=== PATIENT | female | born 1990 | race African-American/Black ===

== ENCOUNTER 2017-07-16 16:44 | Emergency (ER) | payer MEDICAID ==
[2017-07-16 17:02] VITALS: BP 129/67
--- NOTE | 2017-07-16 17:40 | ER Document Report ---
ED Medical Screen (RME) - General Chief Complaint: Psych Problem Stated Complaint: PSYCH EVAL Time Seen by Provider: 07/16/17 17:13 Mode of Arrival: Ambulatory Information source: Patient Notes: 27-year-old female presents with concerns for stress anxiety. Patient notes she gets an argument with her baby daddy she is with who lives 6 hours away, she notes that she has been driving back and forth for 12 hours straight, she initially presented to the emergency department where she gave up her 14 month old. pt then presented back wanting her child, then checked herself and another child in to be seen I have greeted and performed a rapid initial assessment of this patient. A comprehensive ED assessment and evaluation of the patient, analysis of test results and completion of the medical decision making process will be conducted by additional ED providers. PHYSICAL EXAMINATION: GENERAL: Well-appearing, well-nourished and in no acute distress. HEAD: Atraumatic, normocephalic. EYES: Pupils equal round extraocular movements intact, conjunctiva are normal. ENT: Nares patent NECK: Normal range of motion LUNGS: No respiratory distress Abdomen: gravid Musculoskeletal: Normal range of motion NEUROLOGICAL: Normal speech, normal gait. PSYCH: Patient appears anxious poor eye contact SKIN: Warm, Dry, normal turgor, no rashes or lesions noted. TRAVEL OUTSIDE OF THE [place] IN LAST 30 DAYS: No - Related Data Allergies/Adverse Reactions: No Known Allergies Allergy (Unverified 07/16/17 16:49) Past Medical History - Social History Chew tobacco use (# tins/day): No Frequency of alcohol use: None Drug Abuse: None - Past Medical History Cardiac Medical History: Reports: Hx Hypertension Renal/ Medical History: Denies: Hx Peritoneal Dialysis Past Surgical History: Reports: Hx Section Physical Exam - Vital signs Vitals: Temp Pulse Resp BP Pulse Ox 97.8 F 82 20 129/67 H 100 07/16/17 17:01 07/16/17 17:01 07/16/17 17:01 07/16/17 17:01 07/16/17 17:01 Course - Vital Signs Vital signs: Temp Pulse Resp BP Pulse Ox 97.8 F 82 20 129/67 H 100 07/16/17 17:01 07/16/17 17:01 07/16/17 17:01 07/16/17 17:01 07/16/17 17:01
--- NOTE | 2017-07-16 18:03 | ER Document Report ---
ED Psych Disorder / Suicide - General Chief Complaint: Psych Problem Stated Complaint: PSYCH EVAL Time Seen by Provider: 07/16/17 17:13 Mode of Arrival: Ambulatory TRAVEL OUTSIDE OF THE [place] IN LAST 30 DAYS: No - HPI Patient complains to provider of: Other - DEPRESSION Onset: This afternoon Onset was: Sudden Quality of pain: No pain Suicide Risk Factors: Lack of social support Situational problems related to: Spouse, Other - Normal mood: No - TEARFUL, DEPRESSED Associated symptoms: Depressed, Tearful Similar symptoms previously: Yes Recently seen / treated by doctor: Yes - ROUTINE CARE Notes: This patient apparently was at this emergency department earlier today and dropped off her [id number] child unattended and then left. Subsequently she returned and requested mental health assistance. - Related Data Allergies/Adverse Reactions: No Known Allergies Allergy (Unverified 07/16/17 16:49) Past Medical History - General Information source: Patient - Social History Smoking Status: Never Smoker Chew tobacco use (# tins/day): No Frequency of alcohol use: None Drug Abuse: None Lives with: Parents Family History: None Patient has suicidal ideation: No Patient has homicidal ideation: No - Past Medical History Cardiac Medical History: Reports: Hx Hypertension Pulmonary Medical History: Reports: None EENT Medical History: Reports: None Neurological Medical History: Reports: None Endocrine Medical History: Reports: None Renal/ Medical History: Reports: None. Denies: Hx Peritoneal Dialysis Malignancy Medical History: Reports: None GI Medical History: Reports: None Musculoskeltal Medical History: Reports None Psychiatric Medical History: Reports: Hx Depression Past Surgical History: Reports: Hx Section Review of Systems - Review of Systems Constitutional: No symptoms reported EENT: No symptoms reported Cardiovascular: No symptoms reported Respiratory: No symptoms reported Gastrointestinal: No symptoms reported Genitourinary: No symptoms reported Female Genitourinary: See HPI. denies: Vaginal bleeding Musculoskeletal: No symptoms reported Skin: No symptoms reported Neurological/Psychological: No symptoms reported Physical Exam - Vital signs Vitals: Temp Pulse Resp BP Pulse Ox 97.8 F 82 20 129/67 H 100 07/16/17 17:01 07/16/17 17:01 07/16/17 17:01 07/16/17 17:01 07/16/17 17:01 Interpretation: Normal - General General appearance: Appears well, Alert In distress: None - HEENT Head: Normocephalic Eyes: Normal Conjunctiva: Normal Ears: Normal Nasal: Normal Mouth/Lips: Normal Mucous membranes: Normal Pharynx: Normal - Respiratory Respiratory status: No respiratory distress Breath sounds: Normal - Cardiovascular Rhythm: Regular Heart sounds: Normal auscultation Murmur: No - Abdominal Inspection: Gravid female - Back Back: Normal - Extremities General upper extremity: Normal inspection General lower extremity: Normal inspection - Neurological Neuro grossly intact: Yes Cognition: Normal Orientation: AAOx4 - Psychological Associated symptoms: Depressed, Tearful - Skin Skin Temperature: Warm Skin Moisture: Dry Skin Color: Normal Skin Turgor: Elastic Course - Vital Signs Vital signs: Temp Pulse Resp BP Pulse Ox 97.8 F 82 20 129/67 H 100 07/16/17 17:01 07/16/17 17:01 07/16/17 17:01 07/16/17 17:01 07/16/17 17:01 - Laboratory Result Diagrams: 07/16/17 17:50 07/16/17 17:50 Laboratory results interpreted by me: 07/16/17 07/16/17 17:50 17:50 MCH 26.6 L RDW 15.7 H Sodium 136.5 L Carbon Dioxide 21 L Alkaline Phosphatase 149 H Salicylates < 1.0 L Acetaminophen < 10 L Discharge - Discharge Clinical Impression: Third trimester Depression Qualifiers: Depression Type: unspecified Qualified Code(s): F32.9 - Major depressive disorder, single episode, unspecified Condition: Stable Disposition: LABOR CHECK
[2017-07-16 18:07] LABS: ABSOLUTE EOSINOPHILS # (AUTO) 0.1 10^3/uL (0.0-0.6); ABSOLUTE LYMPHOCYTES (AUTO) 2.5 10^3/uL (0.5-4.7); ABSOLUTE MONOCYTES (AUTO) 0.5 10^3/uL (0.1-1.4); BASOPHILS % (AUTO) 0.2 % (0-2); EOSINOPHILS % (AUTO) 0.6 % (0-6); HEMOGLOBIN 12.1 g/dL (12.0-15.5); MEAN CORPUSCULAR HEMOGLOBIN 26.6 pg (27.0-33.4); TOTAL CELLS COUNTED % (AUTO) 100 %
[2017-07-16 18:14] LABS: ABSOLUTE NEUT (AUTO) 6.2 10^3/uL (1.7-8.2); HEMATOCRIT 36.9 % (36.0-47.0); LYMPHOCYTES % (AUTO) 26.5 % (13-45); MEAN CORPUSCULAR HGB CONC 32.8 g/dL (32.0-36.0); MEAN CORPUSCULAR VOLUME 81 fl (80-97); MONOCYTES % (AUTO) 5.5 % (3-13); PLATELET COUNT 221 10^3/uL (150-450); RED BLOOD COUNT 4.55 10^6/uL (3.72-5.28); RED CELL DISTRIBUTION WIDTH 15.7 % (11.5-14.0); SEGMENTED NEUTROPHILS % (AUTO) 67.2 % (42-78); WHITE BLOOD COUNT 9.3 10^3/uL (4.0-10.5)
[2017-07-16 18:25] LABS: ALANINE AMINOTRANSFERASE 23 U/L (9-52); ALBUMIN 3.9 g/dL (3.5-5.0); ALKALINE PHOSPHATASE 149 U/L (38-126); ANION GAP 11 (5-19); ASPARTATE AMINO TRANSFERASE 17 U/L (14-36); BILIRUBIN,DIRECT 0.3 mg/dL (0.0-0.4); BILIRUBIN,TOTAL 0.3 mg/dL (0.2-1.3); BLOOD UREA NITROGEN 7 mg/dL (7-20); CALCIUM 9.8 mg/dL (8.4-10.2); CARBON DIOXIDE 21 mmol/L (22-30); CHLORIDE 105 mmol/L (98-107); GLUCOSE 89 mg/dL (75-110); POTASSIUM 3.9 mmol/L (3.6-5.0); SODIUM 136.5 mmol/L (137-145)
[2017-07-16 18:30] LABS: ACETAMINOPHEN < 10 ug/mL (10-30); ALCOHOL < 10 mg/dL (NONE DETECTED); SALICYLATE < 1.0 mg/dL (2.0-20.0)
--- NOTE | 2017-07-16 18:35 | EKG REPORT ---
SEVERITY:- NORMAL ECG - SINUS RHYTHM : Confirmed by: Jose Juan Stewart 16-Jul-2017 18:34:59
[2017-07-16 19:32] LABS: BILIRUBIN,URINE NEGATIVE (NEGATIVE); COLOR,URINE YELLOW; GLUCOSE, URINE NEGATIVE (NEGATIVE); KETONES,URINE 20 mg/dL (NEGATIVE); LEUKOCYTE ESTERASE,URINE NEGATIVE (NEGATIVE); NITRITE,URINE NEGATIVE (NEGATIVE); PROTEIN,URINE 30 mg/dL (NEGATIVE); URINE SPECIFIC GRAVITY 1.028; UROBILINOGEN,URINE NEGATIVE mg/dL (<2.0)
[2017-07-16 19:33] LABS: APPEARANCE,URINE CLEAR
[2017-07-16 19:51] LABS: URINE AMPHETAMINES SCREEN NEGATIVE; URINE BARBITURATES SCREEN NEGATIVE; URINE BENZODIAZEPINES SCREEN NEGATIVE; URINE COCAINE SCREEN NEGATIVE; URINE MARIJUANA (THC) SCREEN NEGATIVE; URINE METHADONE SCREEN NEGATIVE; URINE PHENCYCLIDINE SCREEN NEGATIVE
== END 2017-07-16 19:01 | disposition admitted as inpatient to this hospital (09) ==
LOC: ER 16:44
DX: O99.343 Other mental disorders complicating pregnancy, third trimester (principal); F32.9 Major depressive disorder, single episode, unspecified; O16.3 Unspecified maternal hypertension, third trimester; Z3A.00 Weeks of gestation of pregnancy not specified
CPT/HCPCS: 36415; 80053; 80307; 81001; 85025; 93005; 93010; 99284

== ENCOUNTER 2017-07-16 18:41 | Inpatient (IN) | payer MEDICAID ==
[2017-07-16 19:47] LABS: AMNISURE (ROM) POSITIVE (NEGATIVE)
[2017-07-16 19:53] LABS: APPEARANCE,URINE SLIGHTLY-CLOUDY; BILIRUBIN,URINE NEGATIVE (NEGATIVE); COLOR,URINE YELLOW; GLUCOSE, URINE NEGATIVE (NEGATIVE); KETONES,URINE TRACE mg/dL (NEGATIVE); LEUKOCYTE ESTERASE,URINE NEGATIVE (NEGATIVE); NITRITE,URINE NEGATIVE (NEGATIVE); PROTEIN,URINE 30 mg/dL (NEGATIVE); URINE SPECIFIC GRAVITY 1.034; UROBILINOGEN,URINE NEGATIVE mg/dL (<2.0)
[2017-07-16 20:15] LABS: URINE AMPHETAMINES SCREEN NEGATIVE; URINE BARBITURATES SCREEN NEGATIVE; URINE BENZODIAZEPINES SCREEN NEGATIVE; URINE COCAINE SCREEN NEGATIVE; URINE MARIJUANA (THC) SCREEN NEGATIVE; URINE METHADONE SCREEN NEGATIVE; URINE PHENCYCLIDINE SCREEN NEGATIVE
[2017-07-16] MEDS ORDERED: DEXTROSE 40% GEL 15 GM TUBE PO PRN ×2 (20:18)
[2017-07-16] MEDS ORDERED: GLUCAGON,HUMAN RECOMB 1 MG INJ SUBCUT PRN (20:18)
[2017-07-16] MEDS ORDERED: DEXTROSE 50%-WATER 25 GM/50 ML DISP.SYRIN IV PRN ×2 (20:18)
[2017-07-16] MEDS ORDERED: PENICILLIN G-K 5 MILLION UNIT VIAL ONE ×2 (20:53→21:08)
[2017-07-16] MEDS ORDERED: CEFAZOLIN 2 GM/D5W RTU 0 GM/0 ML RTUPB IV ONE (21:02)
[2017-07-16] MEDS ORDERED: CITRIC ACID/SODIUM CITRATE ORAL SOLN 15 ML UDCUP ONE (21:02)
[2017-07-16] MEDS ORDERED: CEFAZOLIN INJ 1 GM VIAL ONE (21:08)
[2017-07-16] MEDS ORDERED: CEFAZOLIN 2 GM/D5W RTU 2 GM/50 ML RTUPB IV SCH (21:15)
[2017-07-16] MEDS ORDERED: CEFAZOLIN 1 GM/D5W RTU 1 GM/50 ML RTUPB IV SCH (21:15)
[2017-07-16] MEDS ORDERED: PENICILLIN G POTASSIUM 5,000,000 UNIT in DEXTROSE 5%-WATER 100 ML IV ONE (21:30)
[2017-07-16] MEDS ORDERED: CEFAZOLIN SODIUM 3 GM in DEXTROSE 5%-WATER 100 ML IV SCH ×4 (21:30)
[2017-07-16] MEDS ORDERED: OXYTOCIN 10 UNIT/ML VIAL ONE (21:39)
[2017-07-16] MEDS ORDERED: OXYTOCIN/NORMAL SALINE 20 UNIT/1,000 ML RTUINJ ONE (21:39)
[2017-07-16] MEDS ORDERED: MORPHINE SULFATE 10 MG/ML INJ ONE (21:40)
[2017-07-16] MEDS ORDERED: FENTANYL CITRATE INJ/PF 100 MCG/2 ML AMPUL ONE ×2 (21:40→23:30)
[2017-07-16] MEDS ORDERED: MIDAZOLAM 2 MG/2 ML INJ ONE (21:40)
[2017-07-16 22:11] LABS: LDH 401 U/L (313-618); URIC ACID 4.2 mg/dL (2.5-6.2)
--- NOTE | 2017-07-16 22:32 | RADIOLOGY REPORT (SQ) ---
EXAM DESCRIPTION: U/S OB LIMITED COMPLETED DATE/TIME: 07/16/2017 10:15 pm REASON FOR STUDY: unknown PNC, ?ED 08/10, EGA COMPARISON: None. TECHNIQUE: Limited transabdominal grayscale ultrasound for evaluation of specific requested obstetri desirae parameters. LIMITATIONS: None. FINDINGS: DORON: 8.5 cm. Largest pocket 4.6 cm. FHR: 113 beats per minute. PRESENTATION: Cephalic. OTHER: Posterior placenta without evidence of abruption. Estimated weight 3,228 g +/-4978 g. IMPRESSION: LIMITED OBSTETRICAL ULTRASOUND WITH MEASURED PARAMETERS DELINEATED ABOVE. Trimester of : Third trimester - 28 weeks to delivery. TECHNICAL DOCUMENTATION: JOB ID: [id number] [employer]- All Rights Reserved
[2017-07-16 22:37] LABS: RUBELLA INTERPRETATION POSITIVE
--- NOTE | 2017-07-16 23:14 | Warning Signs in Babies ---
VOD Warning Signs Datetime Report Generated by [facility]: 07/16/2017 23:14 VOD#608 -Warning Signs in Babies: Needs to be viewed. (07/16/2017 19:24:Khloe Rose RN)
[2017-07-16] MEDS ORDERED: ACETAMINOPHEN 325 MG TABLET PO PRN (23:25)
[2017-07-16] MEDS ORDERED: SIMETHICONE 80 MG TAB.CHEW PO PRN (23:25)
[2017-07-16] MEDS ORDERED: OXYCODONE-ACETAMINOPHEN 5-325 MG TABLET PO PRN (23:25)
[2017-07-16] MEDS ORDERED: PROMETHAZINE HCL INJ 25 MG/1 ML VIAL IV PRN (23:25)
[2017-07-16] MEDS ORDERED: ACETAMINOPHEN 100 ML IV PRN (23:25)
[2017-07-16] MEDS ORDERED: DIPH/PERTUSS(ACELL)/TETANUS VAC/PF 0.5 ML SYR (>=10YO) IM PRN (23:25)
[2017-07-16] MEDS ORDERED: MEASLES,MUMPS&RUBELLA VACC/PF 0.5 ML VIAL SUBCUT PRN (23:25)
[2017-07-16] MEDS ORDERED: OXYTOCIN/NORMAL SALINE 20 UNIT/1,000 ML RTUINJ IV PRN (23:25)
[2017-07-16] MEDS ORDERED: KETOROLAC TROMETHAMINE INJ/PF 30 MG/1 ML SDV IV SCH (23:30)
[2017-07-16] MEDS ORDERED: MEPERIDINE HCL/PF INJ 25 MG/1 ML DISP.SYRIN ONE (23:30)
[2017-07-16] MEDS ORDERED: ACETAMINOPHEN 100 ML IV ONE (23:31)
--- NOTE | 2017-07-17 00:12 | Brief Operative Note ---
BRIEF OPERATIVE REPORT DATE OF SURGERY: 07/16/17 TIME OF SURGERY: 23:15 PREOPERATIVE DIAGNOSIS: H/o section x 2, Undesired Fertiltiy, Morbid Obesity, 36+3ega, CHTN, Keloid scar POSTOPERATIVE DIAGNOSIS: BELEM - delivered SURGEON: AIME WELDON FINDINGS: VMI delivered at 2224, Apgars 8/9, multiple adhesions from the anterior uterine body to the anterior abdominal wall. Normal bilateral tubes/ ovaries. Filsche clips x 2 placed on bilateral fallopian tubes. Interceed and Surgicel placed. COMPLICATIONS: None ESTIMATED BLOOD LOSS: 600 TISSUE REMOVED OR ALTERED: placenta and cord sent to pathology TECHNICAL PROCEDURE: Repeat Low Transverse Section, Bilateral Tubal Ligation, Scar Revision
[2017-07-17] MEDS ORDERED: MORPHINE SULFATE 10 MG/ML INJ ONE (00:14)
--- NOTE | 2017-07-17 00:31 | Operative Report ---
Operative Report DATE OF SURGERY: 07/16/17 PREOPERATIVE DIAGNOSIS: H/o section x 2, Undesired Fertiltiy, Morbid Obesity, 36+3ega, CHTN, Keloid scar POSTOPERATIVE DIAGNOSIS: BELEM - delivered OPERATION: Repeat Low Transverse Section, Bilateral Tubal Ligation, Scar Revision SURGEON: AIME WELDON ANESTHESIA: GA TISSUE REMOVED OR ALTERED: placenta and cord sent to pathology COMPLICATIONS: None ESTIMATED BLOOD LOSS: 600 INTRAOPERATIVE FINDINGS: VMI delivered at 2224, Apgars 8/9, multiple adhesions from the anterior uterine body to the anterior abdominal wall. Normal bilateral tubes/ovaries. Filsche clips x 2 placed on bilateral fallopian tubes. Interceed and Surgicel placed. PROCEDURE: Anesthesia provider: [Odalis Pelayo MD, Anupam Marsh CRNA] Estimated blood loss: [600ml] Urine output: [100ml] IV fluids: [1000ml] Indications: [27yo at 36+6ega [place] presented to Labor and delivery with complaint of rupture of membranes at approximately 1600. She reportedly wanted the FOB to care for the 14 month old they have together and when he would not agree to care for child, she left the child at the ER. She then returned with her 6 yo and was seen in the ER and mental status cleared and sent to labor and delivery for evaluation. History obtained and records requested. Spoke with Dr. Boyce at her practice and GBS positive and noted that he would fax the [facility] consent to us. Per limited records ZOË appears to be 08/10/2017 and BTL consent was signed 05/31/2017. Per patient report and records and exam she has had 2 prior sections. c/b HTN, Morbid Obesity, Headache Syndromes, Asthma. Consent reviewed with patient for Repeat section and bilateral tubal ligation. THe risks/benefits/ alternatives were reviewed and she desires to proceed with planned procedure.] Procedure: The patient was taken to the operating room where spinal anesthesia was obtained and found to be adequate. She was then prepped and draped in the normal sterile fashion and placed in the dorsal supine position with a leftward tilt. A Pfannenstiel skin incision was then made and carried through to the underlying layers of the fascia with the scalpel after excising prior keloid scar. The fascia was incised in the midline and the incision extended laterally with the Kinsey scissors. The superior aspect of the fascial incision was then grasped with Stephen clamps elevated and the underlying rectus muscles dissected off sharply due to adhesions of the uterus to the anterior abdominal wall. Attention was then turned to the inferior aspect of the fascial incision which in a similar fashion was grasped, tented up with Stephen clamps, and the rectus muscles dissected off sharply. The rectus muscles were then in the midline and the peritoneum at the amount identified and entered [bluntly] . The peritoneal incision was then extended superiorly and inferiorly with good visualization of the bladder. The bladder blade was inserted and the vesicouterine peritoneum identified grasped with [place] Islander pickups and entered sharply with the Metzenbaum scissors. This incision was then extended laterally with the Metzenbaum scissors and a bladder flap created digitally. The bladder blade was then reinserted and the lower uterine segment incised in a transverse fashion with the scalpel. The uterine incision was then extended bluntly. The bladder blade was removed and the 's head was delivered from cephalic presentation atraumatically. The nose and mouth were suctioned and the cord doubly clamped and cut. And the was handed off to waiting pediatricians. The placenta was then delivered spontaneously and the uterus exteriorized and cleared of all clots and debris. The uterine incision was then repaired with 1- 0 Vicryl in a running locked fashion. A second layer of the same suture was used to obtain hemostasis via imbrication of the initial layer. The bladder flap was then repaired with 3-0 chromic in a running fashion. The uterus was returned to the patient's abdomen and Interceed was placed overlying the uterine incision to prevent adhesions. Surgicel placed to help with hemostasis over the sites of uterine adhesiolysis to anterior abdominal wall. The gutters were cleared of all clots and debris. The left fallopian tube was identified and carried out to the fimbriated end and the mid ampullary portion was ligated with Filschie clip times two. This was repeated on the patients right fallopian tube thus completing Bilateral tubal occlusion. All operative sites were noted to be hemostatic. The fascia was reapproximated with 0 Vicryl in a running fashion from each lateral edge to the midline. The skin was closed with 3-0 Monocryl in a running subcuticular fashion with overlying Dermabond for additional dressing as well as wound closure. The patient tolerated the procedure well. Sponge lap needle and instrument counts are correct timw 2. 3 g of Ancef were given prior to skin incision. The patient was taken to the recovery area awake and in stable condition.
[2017-07-17] MEDS ORDERED: FENTANYL CITRATE INJ/PF 100 MCG/2 ML AMPUL IV PRN ×3 (00:47)
[2017-07-17] MEDS ORDERED: MEPERIDINE HCL/PF INJ 25 MG/1 ML DISP.SYRIN IV PRN (00:47)
[2017-07-17] MEDS ORDERED: DIPHENHYDRAMINE HCL 50 MG/ML VIAL IV PRN (00:47)
[2017-07-17] MEDS ORDERED: ONDANSETRON HCL INJ/PF 4 MG/2 ML SDV IV PRN (00:47)
[2017-07-17] MEDS ORDERED: MORPHINE SULFATE 10 MG/ML INJ IV PRN (00:47)
[2017-07-17] MEDS ORDERED: PROMETHAZINE HCL INJ 25 MG/1 ML VIAL IV PRN ×2 (00:47)
[2017-07-17] MEDS ORDERED: KETOROLAC TROMETHAMINE INJ/PF 30 MG/1 ML SDV ONE (01:00)
[2017-07-17] MEDS ORDERED: HYDROMORPHONE HCL INJ/PF 2 MG/ML AMPULE ONE (01:23)
[2017-07-17] MEDS: HYDROMORPHONE HCL INJ/PF 2 MG/ML AMPULE IV PRN ×2 (01:24→06:50)
--- NOTE | 2017-07-17 01:36 | Admission Physical ---
Datetime Report Generated by CPN: 07/17/2017 01:36 OBSTETRICAL HISTORY Current Procedures: Ultrasound; NST Obstetrical History Comments: G1: 37 week distress G2: 35 week, pre-e, repeat c/s G3: current, IUGR?, chtn MEDICAL HISTORY Medical History Comments: abn pap-, cone biopsy? during G2, pt denies mental health hx, states she finished keflex for UTI 2/16, asthma with rescue inhaler INFECTIOUS HISTORY Chlamydia: Yes FETUS A EGA: 36.3
--- NOTE | 2017-07-17 02:12 | Delivery Summary ---
Del Sum A-C Datetime Report Generated by CPN: 07/17/2017 02:12 DELIVERY PERSONNEL DELIVERY PERSONNEL: [id number] Delivery Doctor:: Karen Burnett MD Anesthesiologist:: Odalis Pelayo MD SHIPFITTERS SUPERVISOR:: Lon Allen CRNA Labor and Delivery Nurse:: Khloe Rose RN Cell Stripper Final:: Khloe Rose RN Neonatal Nurse Practitioner:: MARIE Conner Nursery Nurse:: Demetria Calvin RN Client Service Representative/FLAT CUTTER: [facility] Client Service Representative/FLAT CUTTER: Freida Mcneil ST MATERNAL INFORMATION Delivery Anesthesia: Spinal Medications After Delivery: Pitocin Drip 20 Units/1000ml NSS Estimated Blood Loss (ml): 600 Maternal Complications: Premature Rupture of Membranes; Other Other Maternal Complications: ghtn, psychosocial issues, limited records receives care in [place], [place] LABOR SUMMARY EDC: 08/10/2017 00:00 No. Babies in Womb: 1 Attempted: No Labor Anesthesia: None LABOR INFORMATION Reason for Induction: Not Applicable Oxytocin: N/A Group B Beta Strep: pos Antibiotics # of Doses: 1 Name of Antibiotic Given: penicillin Steroids Given: None Reason Steroids Not Administered: Not Applicable MEMBRANES Membranes Rupture Method: Spontaneous Rupture of Membranes: 07/16/2017 16:00 Length of Rupture (hr): 6.40 Amniotic Fluid Color: Clear Amniotic Fluid Amount: Scant Amniotic Fluid Odor: Normal STAGES OF LABOR Stage 3 hr: 0 Stage 3 min: 1 VAGINAL DELIVERY Episiotomy: None Laceration #1: None Laceration Extension #1: N/A Laceration Repair: Not Applicable CSECTION DELIVERY Primary Indication: > 2 Previous C-Sections CSection Urgency: Non-Scheduled CSection Incidence: Repeat Labor: No Labor Elective: Nonelective CSection Incision: Lower Uterine Transverse BABY A INFORMATION Infant Delivery Date/Time: 07/16/2017 22:24 Method of Delivery: Born in Route : No : N/A Forceps: N/A Vacuum Extraction: N/A Shoulder Dystocia : No PRESENTATION/POSITION BABY A Presentation: Cephalic Cephalic Presentation: Vertex Breech Presentation: N/A PLACENTA INFORMATION BABY A Placenta Delivery Time : 07/16/2017 22:25 Placenta Method of Delivery: Manual Removal Placenta Status: Delivered SCORES BABY A Heart Rate 1 min: >100 bpm Resp Effort 1 min: Good Cry Reflex Irritability 1 min: Cough or Sneeze or Pulls Away Muscle Tone 1 min: Active Motion Color 1 min: Blue/Pale Resuscitation Effort 1 min: Tactile Stimulation SCORE 1 MIN: 8 Heart Rate 5 min: >100 bpm Resp Effort 5 min: Good Cry Reflex Irritability 5 min: Cough or Sneeze or Pulls Away Muscle Tone 5 min: Active Motion Color 5 min: Body [place], Extremities Blue Resuscitation Effort 5 min: Tactile Stimulation SCORE 5 MIN: 9 INFORMATION BABY A Gestational Age at Delivery: 36.3 Gestational Status: Late - 34- 36.6 Weeks Infant Outcome : Liveborn Condition : Stable Infant Sex: Male IDENTIFICATION BABY A Verification Date/Time: 07/16/2017 22:42 ID Band Number: [id number] Mother's Name Verified: Yes Infant RN Verifying : rn mihir/rn lee ann Additional Verifying Personnel: rn calvin WEIGHT/LENGTH BABY A Infant Birthweight (gm): 2635 Weight (lb): 5 Weight (oz): 13 Infant Length (in): 18.50 Infant Length (cm): 46.99 CORD INFORMATION BABY A No. Cord Vessels: 3 Nuchal Cord : Around Neck x1, Loose Nuchal Cord- Other: body cord Cord Blood Taken: Yes-For Storage (Mom's Blood type +) Suction: Mouth ASSESSMENT BABY A Complications: None Skin to Skin: No BABY B INFORMATION : N/A
[2017-07-17] MEDS: IBUPROFEN 800 MG TABLET PO SCH ×4 (02:28→17:03)
[2017-07-17] MEDS ORDERED: INFLUENZA ADLT QUAD (36MOS+) 2017-18 VAC 0.5 ML SYR IM PRN (03:02)
[2017-07-17] MEDS ORDERED: RINGERS SOLUTION,LACTATED 1,000 ML IV PRN (03:19)
[2017-07-17 07:26] LABS: HEMATOCRIT 31.2 % (36.0-47.0); HEMOGLOBIN 10.3 g/dL (12.0-15.5); MEAN CORPUSCULAR HEMOGLOBIN 26.7 pg (27.0-33.4); MEAN CORPUSCULAR HGB CONC 32.9 g/dL (32.0-36.0); MEAN CORPUSCULAR VOLUME 81 fl (80-97); PLATELET COUNT 181 10^3/uL (150-450); RED BLOOD COUNT 3.84 10^6/uL (3.72-5.28); RED CELL DISTRIBUTION WIDTH 15.8 % (11.5-14.0); WHITE BLOOD COUNT 10.2 10^3/uL (4.0-10.5)
--- NOTE | 2017-07-17 08:04 | Admission Physical ---
Datetime Report Generated by CPN: 07/17/2017 08:04 CURRENT ADMISSION Chief Complaint: Suspected Ruptured Membranes Indication for Induction: Not Applicable Indication for Induction: , Intrauterine ; No Active Labor; Ruptured Membranes Admit Plan: Admit to Unit; Initiate Section Protocol ALLERGIES Medication Allergies: No Medication Allergies: No Known Allergies (07/16/2017) Latex: Unknown OBSTETRICAL HISTORY EDC: 08/10/2017 00:00 : 3 Para: 2 Term: 1 : 1 SAB: 0 IAB: 0 Livin Cesareans: 2 VBACs: 0 Gestational Diabetes: No Rh Sensitization: No Incompetent Cervix: No NIKI: No Infertility: No ART Treatment: No Uterine Anomaly: No IUGR: Yes Hx Previous C/S: Yes Macrosomia: No Hx Loss/Stillborn: No PIH: Yes Hx : No Placenta Previa/Abruption: No Depression/PP Depression: No PTL/PROM: Yes Post Hemorrhage: No Current Procedures: Ultrasound; NST Obstetrical History Comments: G1: 37 week distress G2: 35 week, pre-e, repeat c/s G3: current, IUGR?, chtn SEE RECORDS Alcohol: No Marijuana : No Cocaine: No Other Illicit Drugs: No Cigarettes: Never Smoker. [id number] MEDICAL HISTORY Diabetes: No Blood Transfusion: No Pulmonary Disease (Asthma, TB): Yes Breast Disease: No Hypertension: Yes Fashion Director Surgery: No Heart Disease: No Hosp/Surgery: No Autoimmune Disorder: No Anesthetic Complications: No Kidney Disease: Yes Abnormal Pap Smear: Yes Neuro/Epilepsy: No Psychiatric Disorders: No Other Medical Diseases: No Hepatitis/Liver Disease: No Significant Family History: No Varicosities/Phlebitis: No Trauma/Violence : Yes Thyroid Dysfunction: No Medical History Comments: abn pap-, cone biopsy? during G2, pt denies mental health hx, states she finished keflex for UTI 07/14, asthma with rescue inhaler INFECTIOUS HISTORY Gonorrhea: No Genital Herpes: No Chlamydia: Yes Tuberculosis: No Syphilis: No Hepatitis: No HIV/AIDS Exposure: No Rash or Viral Illness: No HPV: No Infectious History Comments: chlamydia 2013 PHYSICAL EXAM General: Normal HEENT: Normal Neurologic: Normal Thyroid: Deferred Heart: Normal Lungs: Normal Breast: Deferred Back: Normal Abdomen: Normal Genitourinary Exam: Normal Extremities: Normal DTRs: Normal Pelvic Type: Adequate Vital Signs: Reviewed; Within Normal Limits VAGINAL EXAM Dilatation: 1 Effacement: 25 Station: -3 Contraction Comments: irreg MEMBRANES Pooling: Positive Membranes: Ruptured Amniotic Fluid Color: Clear FETUS A EGA: 36.3 Monitoring: External US FHR- Baseline: 135 Variability: Moderate 6-25bpm Accelerations: 15X15 Decelerations: None FHR Category: Category I Presentation: Vertex Admit Comment: 27yo at 36+3ega presents after surrendering her 14month old at the ER downstairs stating she was leaking fluid. H/o C/S x 2. Pt poor historian but reports poss PreE and delivery at 35wks with prior preg. Records rec'd but incomplete. Only partial records. BTL signed consent on 05/31/2017 (per records) and Provider from her practice will send copy of consent. H/o CHTN and IUGR. LMP per records 11/03 but ZOË per records is 08/10/2017 (not cosistent) - appears she may have been late to care. also c/b GBS pos in Urine (PCN given now), CHTN (no meds), Asthma, Morbid Obesity (BMI 44), RENTERIA syndromes, Chlamydia. Recent US on 07/04 noted EFW 4#15oz. S/w Dr. Antonio Boyce at [facility]. Of note - no labs in records - so No PNC labs done. Will notify Anesthesia OR team. Will notify NICU as well. CPS involved - Discharge planning consult placed. PLANS FOR LABOR AND DELIVERY Labor and Delivery: None Pain Management: Spinal Feeding Preference: Both Benefit of Breast Feed Discussed: Yes Circumcision: No INFORMED CONSENT Informed Consent Obtained: Vaginal Delivery; Section Delivery; Risks, Benefits and Alternatives Discussed Signature: with User ID: [email or web address]
--- NOTE | 2017-07-17 09:06 | PDOC PROGRESS REPORT ---
Subjective-OB Progress Note for:: 07/17/17 Subjective: pt has no complaints Physical Exam (OB) Vital Signs: Temp Pulse Resp BP Pulse Ox 97.7 F 88 16 122/60 100 07/17/17 08:19 07/17/17 08:19 07/17/17 08:19 07/17/17 08:19 07/17/17 08:19 Intake & Output 07/16/17 07/17/17 07/18/17 06:59 06:59 06:59 Intake Total 950 Output Total 200 Balance 750 Weight 114.6 kg - PIH/Pre-Eclampsia DTR's: 2 + Clonus: Negative Headache: Absent Epigastric Pain: No Visual Changes: No - Incision: Well Approximated Closure Type: Sutures - Lochia Lochia Amount: Scant < 10 ml Lochia Color: Rubra/Red - Abdomen Description: Tender, Soft Hernia Present: No Bowel Sounds: Normoactive Flatus Presence: Absent Stool: No Fundal Description: Firm, Midline Fundal Height: u/u - u/2 - Respiratory Breath sounds: Clear - Extremities Calf: Normal Objective-Diagnostic Laboratory: 07/17/17 07:03 07/16/17 07/16/17 07/16/17 19:15 21:35 21:35 WBC RBC Hgb Hct MCV MCH MCHC RDW Plt Count Uric Acid 4.2 TSH Urine Color YELLOW Urine Appearance SLIGHTLY-CLOUDY Urine pH 6.0 Ur Specific [place] 1.034 Urine Protein 30 H Urine Glucose (UA) NEGATIVE Urine Ketones TRACE H Urine Blood NEGATIVE Urine Nitrite NEGATIVE Ur Leukocyte Esterase NEGATIVE Blood Type A POSITIVE Antibody Screen NEGATIVE 07/16/17 07/17/17 21:35 07:03 WBC 10.2 RBC 3.84 Hgb 10.3 L Hct 31.2 L MCV 81 MCH 26.7 L MCHC 32.9 RDW 15.8 H Plt Count 181 Uric Acid TSH 2.06 Urine Color Urine Appearance Urine pH Ur Specific [place]ler Urine Protein Urine Glucose (UA) Urine Ketones Urine Blood Urine Nitrite Ur Leukocyte Esterase Blood Type Antibody Screen
[2017-07-17] MEDS: PRENATAL VITAMIN W DHA CAPSULE PO SCH (10:35)
[2017-07-17] MEDS: DOCUSATE SODIUM 100 MG CAPSULE PO SCH ×2 (10:35→17:12)
[2017-07-17] MEDS: KETOROLAC TROMETHAMINE INJ/PF 30 MG/1 ML SDV IV SCH ×3 (10:36→21:12)
[2017-07-17 19:39] LABS: CHLAM PCR NOT DETECTED (NOT DETECT); GON PCR NOT DETECTED (NOT DETECT)
[2017-07-17] MEDS: OXYCODONE-ACETAMINOPHEN 5-325 MG TABLET PO PRN (21:26)
[2017-07-18] MEDS: IBUPROFEN 800 MG TABLET PO SCH ×4 (00:08→17:16)
[2017-07-18 07:41] LABS: HEPATITIS C VIRUS AB <0.1 s/co ratio (0.0-0.9)
[2017-07-18 08:17] LABS: HEPATITS B SURFACE ANTIGEN Negative (Negative)
--- NOTE | 2017-07-18 08:36 | PDOC DISCHARGE SUMMARY ---
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 Is this a current diagnosis for this admission?: Yes (3) delivery, delivered, current hospitalization Is this a current diagnosis for this admission?: Yes (4) Chronic hypertension affecting Is this a current diagnosis for this admission?: Yes (5) H/O section Is this a current diagnosis for this admission?: Yes (6) Morbid obesity Is this a current diagnosis for this admission?: Yes (7) Premature rupture of membranes in third trimester Is this a current diagnosis for this admission?: Yes (8) Sterilization Is this a current diagnosis for this admission?: Yes (9) Depression Is this a current diagnosis for this admission?: Yes (10) Third trimester Is this a current diagnosis for this admission?: Yes Discharge Data - Discharge Medication Prescriptions: Oxycodone HCl/Acetaminophen [Percocet 5-325 mg Tablet] 2 tab PO Q4HP PRN #30 tablet PRN Reason: Docusate Sodium [Colace 100 mg Capsule] 100 mg PO BID #60 capsule Ferrous Sulfate 325 mg PO BID #60 tablet Ibuprofen [Motrin 800 mg Tablet] 800 mg PO Q6 #60 tablet Home Medications: Vit/Iron Fum/Folic AC [ Tablet] 1 tab PO DAILY 07/16/17 Docusate Sodium [Colace 100 mg Capsule] 100 mg PO BID #60 capsule 07/18/17 Ferrous Sulfate 325 mg PO BID #60 tablet 07/18/17 Ibuprofen [Motrin 800 mg Tablet] 800 mg PO Q6 #60 tablet 07/18/17 Oxycodone HCl/Acetaminophen [Percocet 5-325 mg Tablet] 2 tab PO Q4HP PRN #30 tablet 07/18/17 Gestational Age: 36.6 Reason(s) for Admission: Onset of Labor, Ceasarean Section-Repeat, PROM, Group B Strep Positive Procedures: NST Intrapartum Procedure(s): : Low Cervical, Transverse, Tubal Ligation - Data Baby 1 Male at 1 minute: 8 at 5 minutes: 9 Home with Mother: No - undecided at this razia Complications: Yes - pt surrendered 14 month old at ER, psych eval - Diagnosis Test Laboratory: Temp Pulse Resp BP Pulse Ox 97.8 F 75 16 110/56 L 99 07/18/17 04:06 07/18/17 04:06 07/18/17 04:06 07/18/17 04:06 07/18/17 04:06 07/16/17 07/17/17 19:15 07:03 RBC 3.84 Hgb 10.3 L Hct 31.2 L Urine Opiates Screen NEGATIVE - Discharge information/Instructions Discharge Activity: Activity As Tolerated, No Driving, No Lifting Over 10 Pounds , Pelvic Rest, No tub bath Discharge Diet: Regular Disposition: HOME, SELF-CARE Follow up with: [facility] in: 1, Weeks - pt states she is following up in [facility]
[2017-07-18] MEDS: PRENATAL VITAMIN W DHA CAPSULE PO SCH (10:01)
[2017-07-18] MEDS: DOCUSATE SODIUM 100 MG CAPSULE PO SCH ×2 (10:02→17:16)
[2017-07-18] MEDS: KETOROLAC TROMETHAMINE INJ/PF 30 MG/1 ML SDV IV SCH ×2 (10:34→17:18)
[2017-07-18] MEDS: OXYCODONE-ACETAMINOPHEN 5-325 MG TABLET PO PRN (14:42)
[2017-07-19] MEDS: IBUPROFEN 800 MG TABLET PO SCH ×3 (00:11→12:08)
[2017-07-19] MEDS: KETOROLAC TROMETHAMINE INJ/PF 30 MG/1 ML SDV IV SCH ×2 (01:20→10:13)
[2017-07-19] MEDS: DOCUSATE SODIUM 100 MG CAPSULE PO SCH (10:13)
[2017-07-19] MEDS: PRENATAL VITAMIN W DHA CAPSULE PO SCH (10:13)
--- NOTE | 2017-07-19 11:55 | PDOC DISCHARGE SUMMARY ---
Final Diagnosis Discharge Date: 07/19/17 Discharge Data - Discharge Medication Prescriptions: Docusate Sodium [Colace 100 mg Capsule] 100 mg PO BID #60 capsule Ferrous Sulfate 325 mg PO BID #60 tablet Ibuprofen [Motrin 800 mg Tablet] 800 mg PO Q6 #60 tablet Oxycodone HCl/Acetaminophen [Percocet 5-325 mg Tablet] 2 tab PO Q4HP PRN #30 tablet PRN Reason: Home Medications: Vit/Iron Fum/Folic AC [ Tablet] 1 tab PO DAILY 07/16/17 Docusate Sodium [Colace 100 mg Capsule] 100 mg PO BID #60 capsule 07/18/17 Ferrous Sulfate 325 mg PO BID #60 tablet 07/18/17 Ibuprofen [Motrin 800 mg Tablet] 800 mg PO Q6 #60 tablet 07/18/17 Oxycodone HCl/Acetaminophen [Percocet 5-325 mg Tablet] 2 tab PO Q4HP PRN #30 tablet 07/18/17 Procedures: NST Intrapartum Procedure(s): : Low Cervical, Transverse - Diagnosis Test Laboratory: Temp Pulse Resp BP Pulse Ox 97.9 F 83 20 131/73 H 100 07/19/17 07:46 07/19/17 07:46 07/19/17 07:46 07/19/17 07:46 07/19/17 07:46 07/16/17 07/17/17 19:15 07:03 RBC 3.84 Hgb 10.3 L Hct 31.2 L Urine Opiates Screen NEGATIVE - Discharge information/Instructions Discharge Activity: Balance Activity w/Rest, No Driving, No Lifting Over 10 Pounds, No Lifting/Push/Pulling, Pelvic Rest, Slowly Increase Activity, No tub bath, Other - follow up with her doctor in [place] in one week for incision check Discharge Diet: Regular Disposition: HOME, SELF-CARE Follow up with: [facility] - will follow up with her dr in [place] or [place] in one week for incision check in: 1, Weeks - pt states she is following up in [facility]
[2017-07-19 11:56] VITALS: BP 138/78
[2017-07-19] MEDS: OXYCODONE-ACETAMINOPHEN 5-325 MG TABLET PO PRN (12:09)
== END 2017-07-19 12:40 | disposition home or self-care (01) | DRG 765 ==
LOC: LC 18:41 → LR 20:29 → 2S 07-17 01:35 → 2N 07-18 15:56 → 2S 07-18 15:57
PROVIDERS: ADMIT Student in an Organized Health Care Education/Training Program; ATTEND Student in an Organized Health Care Education/Training Program
PROC: 10D00Z1 Extraction of Products of Conception, Low, Open Approach (ICD-10-PCS; principal; 2017-07-16)
PROC: 0U570ZZ Destruction of Bilateral Fallopian Tubes, Open Approach (ICD-10-PCS; 2017-07-16)
PROC: 4A1HXCZ Monitoring of Products of Conception, Cardiac Rate, External Approach (ICD-10-PCS; 2017-07-16)
DX: O34.211 Maternal care for low transverse scar from previous cesarean delivery (principal); Z68.41 Body mass index [BMI] 40.0-44.9, adult; O10.92 Unspecified pre-existing hypertension complicating childbirth; O99.214 Obesity complicating childbirth; O69.81X0 Labor and delivery complicated by cord around neck, without compression, not applicable or unspecified; O99.52 Diseases of the respiratory system complicating childbirth; N85.8 Other specified noninflammatory disorders of uterus; J45.909 Unspecified asthma, uncomplicated; O99.344 Other mental disorders complicating childbirth; F32.9 Major depressive disorder, single episode, unspecified; O99.89 Other specified diseases and conditions complicating pregnancy, childbirth and the puerperium; N73.6 Female pelvic peritoneal adhesions (postinfective); O99.824 Streptococcus B carrier state complicating childbirth; Z3A.36 36 weeks gestation of pregnancy; Z30.2 Encounter for sterilization; Z37.0 Single live birth
CPT/HCPCS: 1961; 36415; 76815; 80307; 81005; 83615; 84112; 84443; 84550; 85027; 86592; 86701; 86762; 86803; 86804; 86850; 86900; 86901; 87340; 87491; 87591; 88307; 94799; C1765; J0131; J0690; J1170; J1885; J2175; J2250; J2270; J2540; J2590; J3010; J3490; J7120